=== PATIENT | female | born 1965 | race Caucasian/White ===

== ENCOUNTER 2018-10-03 15:44 | Emergency (ER) | payer BC ==
--- OUTSIDE RECORDS SUMMARY | 2018-10-03 15:49 | XMS REPORT | Continuity of Care Document ---
:1965 External Reference #:[id number] Author Name Brayden Tran MD Address [address] [place] [address] Care Team Providers Name Role Phone Wesly Ramirez M.D. Primary Care Physician Unavailable Payers Date Identification Numbers Payment Provider Subscriber Policy Number: [id number] [facility] [place] PayID: [id number] [address] [address] [place] [address] Problems Active Problems Provider Date Allergic rhinitis Brayden Tran MD Onset: 09/10/2012 Family History Date Family Member(s) Observation Comments Father Asthma Father Emphysema Social History Type Date Description Comments Sex Unknown Occupation Professor IC, Music composition. Tobacco Use Start: Unknown End: Former cigarette smoker, 1989 Unknown smoked a 1/2 a pack a day for 5 years,Quit Tobacco Use Start: Unknown End: Former Cigarette Smoker Unknown Tobacco Use Start: Unknown has never smoked cigars Tobacco Use Start: Unknown has never smoked a pipe Smokeless Tobacco has never used smokeless tobacco ETOH Use Current Alcohol Use Occasionally Recreational Drug Use denies drug use Tobacco Use Start: Unknown End: Patient is a former Unknown smoker Smoking Status Reviewed: 09/09/18 Patient is a former smoker Allergies, Adverse Reactions, Alerts Description No Known Drug Allergies Medications Active Medications SIG Qnty Indications Ordering Date Provider Bactroban mix 1/3 tube in 1 30gm Brayden Mccloud 09/09/2018 2% Cream liter ns irrigate MD Chelsea both nostrils daily with 100 milliliters Mupirocin Calcium mix with saline as 30gm Brayden Mccloud 09/09/2018 prescribed and MD [place] 2% Cream irrigate sinuses daily Pulmicort mix with saline as 60units Brayden Mccloud 02/02/2016 0.5mg/2ML directed and MD [place] Suspension irrigate sinuses twice daily Azelastine HCL instill 2 sprays in 90units Brayden Mccloud 02/02/2015 (Nasal) each nostril two MD [place] 0.1% times a day Solution Fluticasone 2 sprays each 1month Brayden Mccloud 10/14/2013 Propionate nostril daily MD [place] 50mcg/Act Suspension Grossan's 461.2 Bryan Boswell 02/04/2013 Hydropulse Nasal Sanam Glass Biochemistry Professor Sys Bactroban mix in with 30gm Bryan Boswell 01/21/2013 2% Cream Pulmicort nasal Sanam Glass irrigation as instructed. Saline mix with bactroban 3Liters Brayden Mccloud 01/21/2013 0.9% as directed MD [place] Solution Zyrtec Allergy prn Unknown Alkolol twice daily Unknown History Medications Levaquin 1 tablet by mouth 10tabs Brayden Mccloud 06/19/2018 - 500mg daily until finished MD [place] 09/09/2018 Tablets Medrol take as directed 1pchuy Mccloud 06/19/2018 - 4mg MARIANNA Tran MD 09/09/2018 Prednisone 2 by mouth every day 14tabs J32.2 Bryan Boswell 04/02/2017 - 20mg with food Quan, 10/30/2017 Robin Marion Levaquin 1 tablet by mouth 10tabs Brayden Mccloud 02/13/2017 - 500mg daily until finished MD [place] 04/02/2017 Tablets Levaquin 1 tablet by mouth 10tabs Brayden Mccloud 03/15/2016 - 500mg daily until finished MD [place] 02/13/2017 Tablets Medrol take as directed 1pchuy Mccloud 09/22/2015 - 4mg MARIANNA Tran MD 02/13/2017 Medrol (Raymundo) take as directed 1pchuy Mccloud 04/21/2015 - 4mg MD [place] 09/22/2015 Tablets Levaquin 1 tablet by mouth 10tabs Esteban Mercer 04/21/2015 - 500mg daily until finished 02/13/2017 Tablets Medrol (Raymundo) take as directed 1pchuy Mccloud 05/18/2014 - 4mg MD [place] 06/30/2014 Tablets Levaquin 1 tablet by mouth 10tarajendra Mccloud 05/18/2014 - 500mg daily until finished MD [place] 06/30/2014 Tablets Medrol (Raymundo) take as directed 1pchuy Mccloud 02/17/2014 - 4mg MD [place] 06/30/2014 Tablets Levaquin 1 tablet by mouth 10tarajendra Mccloud 02/02/2014 - 500mg daily until finished MD [place] 02/17/2014 Tablets Medrol (Raymundo) take as directed 1pchuy Mccloud 02/02/2014 - 4mg MD [place] 02/17/2014 Tablets Levaquin 1 tablet by mouth 10britney Boswell 01/21/2013 - 500mg daily until finished Quan 02/17/2014 Tablets M.D. Fluticasone Nasal 2 sprays each side 90Days Brayden Mccloud 09/22/2012 - Dresher twice a day MD [place] 02/13/2017 50mcg Azelastine HCL instill 2 sprays 3months Brayden Mccloud 09/22/2012 - into each nostril MD [place] 02/13/2017 137mcg/Dresher twice a day Solution Auvi-Q administer 1units Brayden Mccloud 09/09/2012 - 0.3mg/0.3ML intramuscular to MD [place] 01/21/2013 Device anterolateral thigh Bactroban mix 1/3 tube in 15gm Bryan Boswell 09/09/2012 - 2% Cream liter ns irrigate Quan, 02/17/2014 both nostrils bid M.D. with 20-25cc Saline Flush use with bactroban 3units Bryan Boswell 09/09/2012 - 0.9% irrigations 1000cc Quan, 02/17/2014 Solution M.D. Dymista 1 spray twice a day 90days Bryan Boswell 09/09/2012 - [facility] 137-50mcg/Act insurance card" M.D. Suspension Medrol Dosepak follow the schedule 1Pchuy Boswell 10/07/2011 - 4mg on the pack [facility], 10/07/2011 Tablets M.D. Levaquin 1 po qd 14tabs 473.0 Bryan Boswell 10/07/2011 - [facility]mg [facility], 01/21/2013 Tablets M.D. Medrol Dosepak follow the schedule 1Pchuy Boswell 10/02/2011 - 4mg on the pack [facility], 10/07/2011 Tablets M.D. Bactroban mix 1/3 tube in 3units 477.8 Bryan Boswell 04/26/2011 - 2% Cream liter ns irrigate [facility], 09/09/2012 both nostrils bid M.D. Saline mix with bactroban 3Liters 477.8 Bryan Boswell 04/26/2011 - 0.9% as directed [facility], 09/09/2012 Solution M.D. Albuterol HFA 2 puffs q4h prn 1units 477.8 Bryan Boswell 04/26/2011 - [facility], 10/30/2017 90mcg/Act Aerosol M.D. Levaquin 1 po qd 14days Brayden Mccloud 06/25/2010 - 500mg MD [place] 05/23/2011 Tablets Medrol Dosepak follow the schedule 1Pchuy Boswell 06/25/2010 - 4mg on the pack [facility], 05/23/2011 Tablets M.D. Fexofenadine HCL 1 po qd 30tabs 477.8 Brayden Mccloud 08/14/2009 - MD [place] 05/23/2011 180mg Tablets Levaquin 1 po qd 21days 473.0 Brayden Mccloud 02/10/2009 - 500mg MD [place] 06/25/2010 Tablets Medrol Dosepak follow the schedule 1Pchuy 473.0 Brayden Mccloud 02/10/2009 - 4mg on the pack MD [place] 06/25/2010 Tablets Levaquin 1 tablet by mouth 10tabs 473.2 Brayden Mccloud 10/20/2008 - 500mg daily until finished MD [place] 06/25/2010 Tablets Medrol Dosepak take as directed 1Pchuy 473.2 Brayden Mccloud 10/20/2008 - 4mg MD [place] 06/25/2010 Tablets Percocet 1-2 tabs by mouth 20tabs 473.2 Brayden Mccloud 10/20/2008 - 5-325mg every 4-6 hours as MD [place] 06/25/2010 Tablets needed for pain Levaquin 1 Tablet By Mouth 14tabs Brayden Mccloud 09/06/2008 - 500mg Daily Until Finished MD [place] 06/25/2010 Tablets Nasonex Dresher 2 Sprays In 1units 473.2 Brayden Mccloud 08/31/2008 - 50mcg/Act Both Nostrils Once A MD [place] 01/21/2013 Susp Day Prednisone 4 Tabs PO Every Day 38tabs 473.2 Brayden Mccloud 08/31/2008 - 10mg X5 D, Then 3 Tabs PO MD [place] 06/25/2010 Tablets Every Day X3 D, Then 2 Tabs PO Every Day X3D, Then 1 Tab PO qd X3D, Then Off Augmentin 1 By Mouth Twice A 14tabs 473.2 Brayden Mccloud 08/31/2008 - 875mg Day For 7 Days. MD [place] 06/25/2010 Tablets Augmentin 1 By Mouth Twice A 28tabs 461.2 Brayden Mccloud 08/18/2008 - 875mg Day For 14 Days. MD [place] 06/25/2010 Tablets Augmentin 1 by mouth twice A 28tabs 461.2 Brayden Mccloud 08/18/2008 - 875mg day for 14 days. MD [place] 08/31/2008 Tablets Casandra 1 po qd 90days Brayden Mccloud 04/05/2008 - 180mg MD [place] 05/23/2011 Tablets Xyzal Take 1 Tablet Daily 30tabs Bryan Boswell 04/04/2008 - 5mg Tabs Quan, 04/05/2008 Sanam Vaughntab 5 1-2 tablet every 4-6 32tabs 473.0 Brayden Mccloud 03/21/2008 - Tablets hours for pain MD [place] 08/31/2008 Loratadine Allergy Unknown 11/09/2006 - Relief 08/27/2007 10mg Tablets Dispers Levaquin 1 tablet by mouth 14tabs Brayden Mccloud 07/05/2005 - 500mg daily until finished MD [place] 11/10/2006 Tablets Flonase Unknown 06/18/2005 - 11/10/2006 Labelle Unknown 06/18/2005 - 01/21/2013 Prednisone 4 tabs po every day 30tabs 477.8 Brayden Mccloud 05/29/2005 - 10mg x3 D, then 3 tabs po MD [place] 06/19/2005 Tablets every day x3 D, then 2 tabs po every day x3d, then 1 tab po qd x3d, then off Zyrtec Unknown 05/28/2005 - 11/10/2006 Amoxicillin & Unknown 05/28/2005 - Clavulanate 06/19/2005 Potassium 875mg;125 mg Tablets Nasonex 1 Dresher Intranasal 1units Brayden Mccloud - 50mcg/Act Twice A Day MD [place] 06/25/2010 Suspension Vital Signs Date Vital Result Comment 09/09/2018 2:04pm Weight 130.00 lb Weight 58.968 kg Height 66 inches 5'6" Height in cm's 167.6 cm BMI (Body Mass Index) 21.0 kg/m2 10/30/2017 2:29pm Weight 125.00 lb Weight 56.700 kg Height 66 inches 5'6" Height in cm's 167.6 cm BMI (Body Mass Index) 20.2 kg/m2 04/02/2017 1:43pm BP Systolic 108 mmHg BP Diastolic 74 mmHg Heart Rate 64 /min Respiratory Rate 17 /min Weight 125.00 lb Weight 56.700 kg Height 66 inches 5'6" Height in cm's 167.6 cm BMI (Body Mass Index) 20.2 kg/m2 06/13/2016 2:02pm BP Systolic 122 mmHg BP Diastolic 65 mmHg Heart Rate 61 /min Weight 127.00 lb Weight 57.607 kg Height 66 inches 5'6" Height in cm's 167.6 cm BMI (Body Mass Index) 20.5 kg/m2 06/30/2014 11:23am BP Systolic 131 mmHg BP Diastolic 78 mmHg Heart Rate 72 /min Respiratory Rate 16 /min Weight 127.00 lb Weight 57.607 kg Height 66 inches 5'6" Height in cm's 167.6 cm BMI (Body Mass Index) 20.5 kg/m2 05/18/2014 3:26pm BP Systolic 114 mmHg BP Diastolic 69 mmHg Heart Rate 68 /min Respiratory Rate 17 /min Body Temperature 99.2 F Weight 127.00 lb Weight 57.607 kg Height 66 inches 5'6" Height in cm's 167.6 cm BMI (Body Mass Index) 20.5 kg/m2 02/17/2014 9:49am BP Systolic 188 mmHg BP Diastolic 76 mmHg Heart Rate 62 /min Respiratory Rate 17 /min Weight 127.00 lb Weight 57.607 kg Height 66 inches 5'6" Height in cm's 167.6 cm BMI (Body Mass Index) 20.5 kg/m2 02/04/2013 3:49pm BP Systolic 114 mmHg BP Diastolic 75 mmHg Heart Rate 65 /min Respiratory Rate 17 /min Weight 127.00 lb Weight 57.607 kg 01/21/2013 3:40pm BP Systolic 103 mmHg BP Diastolic 78 mmHg Heart Rate 88 /min Respiratory Rate 17 /min Weight 127.00 lb Weight 57.607 kg 09/09/2012 2:29pm BP Systolic 139 mmHg BP Diastolic 77 mmHg Heart Rate 83 /min Respiratory Rate 18 /min Weight 127.00 lb Weight 57.607 kg 09/22/2008 11:56am Heart Rate 70 /min Respiratory Rate 16 /min Weight 125.00 lb Weight 56.700 kg 08/31/2008 10:40am Heart Rate 72 /min Respiratory Rate 16 /min Weight 125.00 lb Weight 56.700 kg 08/18/2008 11:36am Heart Rate 76 /min Respiratory Rate 16 /min Weight 125.00 lb Weight 56.700 kg 05/05/2008 2:16pm Heart Rate 80 /min Respiratory Rate 16 /min Weight 125.00 lb Weight 56.700 kg 03/21/2008 2:48pm BP Systolic 118 mmHg BP Diastolic 79 mmHg Heart Rate 62 /min Respiratory Rate 16 /min 08/28/2007 4:10pm BP Systolic 99 mmHg BP Diastolic 64 mmHg Heart Rate 70 /min Respiratory Rate 16 /min 11/10/2006 9:59am BP Systolic 86 mmHg BP Diastolic 56 mmHg Heart Rate 48 /min Respiratory Rate 16 /min 05/29/2005 9:48am BP Systolic 110 mmHg BP Diastolic 73 mmHg Heart Rate 66 /min Respiratory Rate 16 /min Results Test Date Facility Test Result H/L Range Note Wound [facility] Wound/Misc (SEE NOTE) 1 Culture/Sensi 3 c/o Department [place] [address] Stain [phone] Laboratory test [facility] Culture And < pending> finding 9 c/o Department [place] [address] [phone] Laboratory test [facility] Culture SERRATIA 2 finding 9 c/o Department of Laboratories Sensitivity [place] <[place] [address] NOTE> [phone] CS-1 [facility] Ampicillin >=32 R 9 c/[place] [address] [phone] Amikacin <=2 S Ciprofloxacin <=0.25 S Ceftriaxone <=1 S Cefazolin >=64 R Gentamicin <=1 S Imipenem <=1 S Levofloxacin <=0.12 S Trimeth-Sulfa <=20 S Ceftazidime <=1 S Tigecycline 1 S Piperacillin/Tazobactam <=4 S HCG () 11/01/2008 [facility] Specific 1.005 Low 1.010-1.030 Urine Stat c/o Department [place] [address] [phone] Urine NEGATIVE Negative 3 Surgical 11/01/2008 [facility] Surgical -- 4 Pathology c/o Department of Laboratories Pathology <SEE NOTE> [place] [address] [phone] CBC With 10/27/2008 [facility] White Blood 4.4 CUMM Low 4.8 Electronic c/o Department of Laboratories Count -10 [place] [address] .8 [phone] Red Cell Count 3.78 CUMM Low 4.2-5.4 Hemoglobin 12.0 g/dL 12.0-16.0 Hematocrit 36 % 35-47 Mean Corpuscular Volume 96 um3 79-97 Mean Corpuscular Hemoglob 32 pg High 27-31 Mean Corpuscular HGB Cone 33 g/dL 32-36 Redcell Distribution WDTH 12 % 10.5-15 Platelet Count 213 CUMM 150-450 Mean Platelet Volume 8.5 um3 7.4-10.4 Gran % 57.3 % 38-83 Lymph % 35.2 % 25-47 Mononuclear % 6.5 % 1-9 Eosinophil % 0.4 % 0-6 Basophil % 0.6 % 0-2 Abs Lymphs 1.6 1.0-4.8 Abs Mononuclear 0.3 0-0.8 Absolute Neutrophil Count 2.5 1.5-7.7 Abs Eosinophils 0 0-0.6 Abs Basophils 0 0-0.2 Urine 10/27/2008 [facility] Specific 1.003 Low 1.010-1.030 Qual c/o Department of [place] [address] [phone] Urine NEGATIVE Negative 5 Laboratory test 09/19/2008 [facility] Rast Rabbit ( SEE NOTE) 6 finding c/o Department of [place] [address] [phone] Ast GN20 08/31/2008 [facility] Ampicillin >=32 R 7 c/o Department [place] [address] [phone] Amikacin <=2 S Ciprofloxacin <=0.25 S Cefazolin >=64 R Gentamicin <=1 S Imipenem <=1 S Levofloxacin <=0.25 S Meropenem <=0.25 S Trimeth-Sulfa <=20 S Ceftazidime <=1 S Tigecycline 1 S Piperacillin/Tazobactam <=4 S Laboratory test 08/31/2008 [facility] Culture SERRATIA 8 finding c/o Department of Laboratories Sensitivity MARCESC <[place] [address] NOTE> [phone] HCG () 03/29/2008 [facility] Specific [place] 1.006 Low 1.010 Urine Stat c/o Department of Laboratories -1.03 [place] [address] 0 [phone] Urine NEGATIVE Negative 9 Surgical 03/29/2008 [facility] Surgical -- 10 Pathology c/o Department of Laboratories Pathology <SEE NOTE> [place] [address] [phone] Urine 03/25/2008 [facility] Specific 1.004 Low 1.0 11 c/o Department of Laboratories [place] 10- [place] [address] 1.0 [phone] Urine NEGATIVE Negative 12 CBC With 03/25/2008 [facility] White Blood 5.9 CUMM 4.8-10.8 Electronic Diff c/o Department [place] [address] [phone] Red Cell Count 4.03 CUMM Low 4.2-5.4 Hemoglobin 13.1 g/dL 12.0-16.0 Hematocrit 39 % 35-47 Mean Corpuscular Volume 97 um3 79-97 Mean Corpuscular Hemoglob 32 pg High 27-31 Mean Corpuscular HGB Cone 33 g/dL 32-36 Redcell Distribution WDTH 11 % 10.5-15 Platelet Count 230 CUMM 150-450 Mean Platelet Volume 7.8 um3 7.4-10.4 Gran % 62.4 % 38-83 Lymph % 27.0 % 20-45 Mononuclear % 7.4 % 1-9 Eosinophil % 3.1 % 0-6 Basophil % 0.1 % 0-2 Abs Lymphs 1.6 1.0-4.8 Abs Mononuclear 0.4 0-0.8 Absolute Neutrophil Count 3.7 1.5-7.7 Abs Eosinophils 0.2 0-0.6 Abs Basophils 0 0-0.2 1 RUN DATE: 02/08/13 [facility] LAB LIVE PAGE 1 RUN TIME: [address] [place] [address] Specimen Inquiry Name: SADIE WALL : [address]: Deb Hull NP Acct: [id number] Unit: [id number] AGE: 47 Location: [facility] Re02/04/13 SEX: F Status: REG REF SPEC: [id number] KRISTIAN: 02/04/[address]: Deb Hull NP REQ: [id number] RECD: 02/05/13 STATUS: COMP _ SOURCE: MISC SOURC SPDESC:WOUND ORDERED: Culture Stain QUERIES: Medent Number [id number] Specimen Description LEFT MIDDLE MEATUS Procedure Result Verified Site Wound/Misc Gram Stain Final 02/05/13- 1420 ML 2+ Nucleated Cells 1+ Gram Positive Cocci Wound/Misc Culture Final 02/08/13- 0825 ML No Growth Day 3 END OF REPORT * ML=Testing performed at Main Lab DEPARTMENT OF PATHOLOGY, [address] [place] [address] Tavo Puckett M.D. Director [facility] Permit #[id number] 2 SERRATIA MARCESCENS F^FEW^QTY 3 If is still suspected, please repeat test after 48 to 72 hours. . 4 --- RUN DATE: 11/02/08 [facility] NMI LIVE PAGE 1 RUN TIME: 1455 Specimen Inquiry RUN USER: INTERFACE -- Name: SADIE BRIZUELA Lee Torres#: [id number] Status: [facility] Re11/01/08 Age/Sex: 43/F Unit#: [id number] Location: [facility] : [birth year] -- Specimen: [id number] SOUT Spec Date: 11/01/[address]: Brayden Tran MD Spec Type: SURGICAL P Received: 11/01/08-0603 Copies to: SPECIMEN 1) SEPTAL CARTILAGE AND BONE 2) RIGHT SINUS CONTENTS HISTORY PRE-OP DIAGNOSIS: Acute ethmoidal sinusitis GROSS DESCRIPTION 1) Specimen received in formalin labelled Sadie Brizuela, Septal Cartilage and Bone and consists of multiple, mckeon, pink and merritt-white bone and cartilage fragments measuring 3.6 x 1.8 x 0.4 cm. in aggregate. Per established hospital medical staff protocol no tissue is submitted. Gross only. 2) Specimen received in formalin labelled Sadie Brizuela, Right Sinus Contents and consists of multiple, mckeon to pink, soft tissue and bone fragments measuring 1.2 x 0.3 x 0.2 cm. in aggregate. Submitted entirely, one cassette. DIAGNOSIS 1) Nasal septal cartilage and bone, septoplasty: Unremarkable bone and cartilaginous fragments. 2) Right nasal sinus contents: Respiratory mucosa with chronic inflammation and post inflammatory hyperpigmentation and focal xanthogranulomatous inflammation. Signed Electronically by: TAVO PUCKETT MD 11/02/08 1452 -- -- DEPARTMENT OF PATHOLOGY, [address] [place] [address] [facility] Permit #[id number] Tavo Puckett M.D. Director Kedar Delgado M.D. Clinical Documentation Nurse Dir cecil -- 5 If is still suspected, please repeat test after 48 to 72 hours. . 6 TEST RESULT RETURNED FROM REFERENCE LABORATORY AND HARDCOPY SENT TO PHYSICIAN(S) OFFICE. 7 LEFT ETHMOID SINUS 8 SERRATIA MARCESCENS 9 If is still suspected, please repeat test after 48 to 72 hours. . 10 ---- RUN DATE: 03/31/08 [facility] NMI LIVE PAGE 1 RUN TIME: 1331 Specimen Inquiry RUN USER: INTERFACE -- Name: SADIE BRIZUELA Accmanasa#: [id number] Status: [facility] Re03/29/08 Age/Sex: 42/F Unit#: [id number] [facility] : [birth year] -- Specimen: [id number] SOUT Spec Date: 03/29/[address]: Brayden Tran MD Spec Type: SURGICAL P Received: 03/30/08-1008 Copies to: SPECIMEN 1) LEFT SINUS CONTENTS 2) RIGHT SINUS CONTENTS HISTORY PRE-OP DIAGNOSIS: Chronic sinusitis GROSS DESCRIPTION 1) The specimen is received in formalin labelled Sadie Brizuela, Left Sinus Contents, and consists of a mckeon, hemorrhagic, soft tissue fragment and shavings measuring 1.6 x 0.6 x 0.3 cm. in aggregate. Grinder Setup Operator section, one cassette. 2) The specimen is received in formalin labelled Sadie Brizuela, Right Sinus Contents, and consists of a mckeon-merritt, focally hemorrhagic, membranous, soft tissue fragment and shavings measuring 2.1 x 0.7 x 0.3 cm. in aggregate. Grinder Setup Operator section, one cassette. DIAGNOSIS 1) Left sinus contents: Chronically inflamed respiratory mucosa. 2) Right sinus contents: Chronically inflamed respiratory mucosa and bone fragments. Signed Electronically by: TAVO PUCKETT MD 03/31/08 1331 -- -- DEPARTMENT OF PATHOLOGY, [address] [place] [address] [facility] Permit #[id number] Tavo Puckett M.D. Director Kedar Delgado M.D. Clinical Documentation Nurse Dir cecil -- 11 AA 03/29/08 12 If is still suspected, please repeat test after 48 to 72 hours. . Procedures Date Code Description Status 02/04/2013 72998 Nasal Endoscopy, Diagnostic Completed 09/09/2012 57452 Nasal Endoscopy, Diagnostic Completed 05/16/2011 18303 Prick Test Completed 02/10/2009 02344 Nasal Endoscopy, Diagnostic Completed 11/01/2008 01191 Nasal Endoscopy With Ethmoidectomy, Partial Completed 11/01/2008 68866 Septoplasty Completed 08/31/2008 71911 Nasal Endoscopy, Diagnostic Completed 07/07/2008 10215 Prick Test Completed 05/05/2008 64556 Nasal Endoscopy, Diagnostic Completed 04/05/2008 11138 Nasal Endoscopy W/ Debridement Completed 03/31/2008 26067 Nasal Endoscopy, Diagnostic Completed 03/29/2008 46331 Nasal Endoscopy W/Maxllary Antrostomy W/Excision Of Poylp Completed 03/29/2008 48024 Nasal Endoscopy/Ethmoidectomy, Total Completed 12/02/2006 00012 Prick Test Completed 12/02/2006 26241 Prick Test Completed 05/29/2005 92241 Nasal Endoscopy, Diagnostic Completed Encounters Type Date Location Provider Dx Diagnosis Office Visit 09/09/2018 [place],After Brayden Howard30.89 Other allergic 1:45p 04/14/07 MD [place] rhinitis J32.9 Chronic sinusitis, unspecified Office Visit 10/30/2017 2:15p [place],After 04/14/07 Brayden Howard30.89 Other allergic MD [place] rhinitis Office Visit 04/02/2017 1:45p [place],After 04/14/07 Bryan Howard32.2 Chronic Quan ethmoidal M.D. sinusitis Office Visit 02/13/2017 2:45p [place],After 04/14/07 Brayden Howard32.2 Domenica Tran MD ethmoidal sinusitis J30.89 Other allergic rhinitis Office Visit 06/13/2016 1:30p [place],After 04/14/07 Brayden Mccloud J30.1 Allergic MD [place] rhinitis due to pollen Office Visit 03/15/2016 10:00a [place],After 04/14/07 Brayden Mccloud J32.2 Chronic MD [place] ethmoidal sinusitis Office Visit 02/02/2016 10:30a [place],After 04/14/07 Brayden Mccloud J32.2 Chronic MD [place] ethmoidal sinusitis J30.1 Allergic rhinitis due to pollen Office Visit 06/30/2014 11:00a [place],After 04/14/07 Brayden Mccloud 477.8 RhinitisChelsea MD Perennial, Allergy Office Visit 05/18/2014 3:15p [place],After 04/14/07 Brayden Mccloud 461.9 SinusitisChelsea MD Acute/Unspecifie d Office Visit 02/17/2014 9:30a [place],After 04/14/07 Brayden Mccloud 473.2 SinusitisChelsea MD Chronic Ethmoidal 477.8 Rhinitis, Perennial, Allergy Office Visit 02/04/2013 3:15p [place],After 04/14/07 [place] 461.2 Sinusitis, Acute Deb WELLNESS SPECIALIST Ethmoidal Office Visit 01/21/2013 3:30p [place],After 04/14/07 Brayden Mccloud 461.2 Sinusitis, Acute MD [place] Ethmoidal Office Visit 09/09/2012 2:15p [place],After 04/14/07 Brayden Mccloud 477.8 RhinitisChelsea MD Perennial, Allergy 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 478.1-4 Obstruction Of Nasal Airway Office Visit 10/07/2011 9:45a [place],After 04/14/07 [place], 473.0 Sinusitis, Deb WELLNESS SPECIALIST Chronic Maxillary 477.8 Rhinitis, [place]rennial, Allergy Office Visit 05/23/2011 2:30p [place],After 04/14/07 [place], 477.8 Rhinitis , Deb WELLNESS SPECIALIST Perennial, Allergy 477.8 Rhinitis, Perennial, Allergy 477.0 Rhinitis, Seasonal -Allergic Due To Pollen 477.0 Rhinitis, Seasonal -Allergic Due To Pollen Office Visit 04/26/2011 9:00a [place],After 04/14/07 [place], 477.8 Rhinitis , Deb WELLNESS SPECIALIST Perennial, Allergy 477.0 Rhinitis, Seasonal -Allergic Due To Pollen 473.0 Sinusitis, Chronic Maxillary Office Visit 08/14/2009 3:30p [place],After 04/14/07 [place], 477.8 Rhinitis , Deb WELLNESS SPECIALIST Perennial, Allergy 477.0 Rhinitis, Seasonal -Allergic Due To Pollen Office Visit 02/10/2009 2:00p [place],After 04/14/07 [place], 473.0 Sinusitis, Deb WELLNESS SPECIALIST Chronic Maxillary 473.2 Sinusitis, Chronic Ethmoidal 472.0 Rhinitis, Chronic Office Visit 09/22/2008 11:30a [place],After 04/14/07 Brayden Mccloud 470 Deviated Nasal MD [place] Septum 461.2 Sinusitis, Acute Ethmoidal Office Visit 08/18/2008 11:00a [place],After 04/14/07 Brayden Mccloud 461.2 Sinusitis, Acute MD [place] Ethmoidal Office Visit 07/22/2008 10:30a [place],After 04/14/07 [place], 477.8 Rhinitis , Deb WELLNESS SPECIALIST Perennial, Allergy Office Visit 03/21/2008 2:15p [place],After 04/14/07 [place], 473.0 Sinusitis, Deb WELLNESS SPECIALIST Chronic Maxillary 473.2 Sinusitis, Chronic Ethmoidal 473.1 Sinusitis, Chronic Frontal Office Visit 08/28/2007 4:00p [place],After 04/14/07 Brayden Mccloud 477.8 Rhinitis, MD [place] Perennial, Allergy 473.2 Sinusitis, Chronic Ethmoidal 473.0 Sinusitis, Chronic Maxillary 473.1 Sinusitis, Chronic Frontal Office Visit 04/30/2007 11:30a [place],After 04/14/07 [place], 473.0 Sinusitis, Deb WELLNESS SPECIALIST Chronic Maxillary 477.8 Rhinitis, Perennial, Allergy 470 Deviated Nasal Septum Office Visit 11/10/2006 10:00a [place],After 04/14/07 Brayden Mccloud 477.8 Rhinitis, MD [place] Perennial, Allergy 473.0 Sinusitis, Chronic Maxillary 381.81 Dysfunction Of Eustachian Tube Office Visit 06/19/2005 3:30p [place],After 04/14/07 Brayden Gonzalez.8 RhinitisChelsea MD Perennial, Allergy 381.81 Dysfunction Of Eustachian Tube Office Visit 05/29/2005 9:45a [place],After 04/14/07 Brayden Gonzalez.8 RhinitisChelsea MD Perennial, Allergy 473.0 Sinusitis, Chronic Maxillary
[2018-10-03 16:00] VITALS: BP 117/70
--- NOTE | 2018-10-03 16:07 | UC ---
Lower Extremity/Ankle HPI - HPI Summary HPI Summary: R ankle and edmondson pain started 1 week ago after long bike ride. pt is active, has chronic weakness R side (sees neuro) she does daily exercises but pain is much worse over past few days - History of Current Complaint Chief Complaint: UCLowerExtremity Stated Complaint: ANKLE INJURY Time Seen by Provider: 10/03/18 15:54 Hx Obtained From: Patient ?: No Onset/Duration: Gradual Onset Severity Initially: Mild Severity Currently: Moderate Pain Intensity: 5 Aggravating Factor(s): Standing, Ambulation Alleviating Factor(s): Rest Able to Bear Weight: Yes - Allergies/Home Medications Allergies/Adverse Reactions: Allergies Allergy/AdvReac Type Severity Reaction Status Date / Time ENVIRONMENTAL Allergy SEASONAL Uncoded 10/03/18 15:51 Home Medications: Home Medications Budesonide [Pulmicort] 1 mg IN DAILY 10/03/18 [History Confirmed 10/03/18] PMH/Surg Hx/FS Hx/Imm Hx Previously Healthy: Yes 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 - Surgical History Surgical History: None Surgery Procedure, Year, and Place: LEFT MIDDLE & RING FINGER-2 D &C-BREAST REDUCTION-FIRST RIGHT RIB REMOVED-SINUS SURGERY - Family History Known Family History: Positive: Non-Contributory - Social History Occupation: Employed Full-time Lives: With Family Alcohol Use: Daily Substance Use Type: None Smoking Status (MU): Former Smoker Have You Smoked in the Last Year: No When Did the Patient Quit Smoking/Using Tobacco: 1978 Review of Systems All Other Systems Reviewed And Are Negative: Yes Constitutional: Positive: Negative Respiratory: Positive: Negative Cardiovascular: Positive: Negative Musculoskeletal: Positive: Other: - pain R ankle, edmondson Is Patient Immunocompromised?: No Physical Exam Triage Information Reviewed: Yes Appearance: Well-Appearing, No Pain Distress, Well-Nourished Vital Signs: Initial Vital Signs Temp 98.6 F 10/03/18 15:53 Pulse 80 10/03/18 15:53 Resp 18 10/03/18 15:53 BP 117/70 10/03/18 15:53 Pulse Ox 97 10/03/18 15:53 Vital Signs Reviewed: Yes Respiratory Exam: Normal Respiratory: Positive: Lungs clear Cardiovascular Exam: Normal Cardiovascular: Positive: RRR Musculoskeletal: Positive: Other: - pain anterior ankle and distal edmondson, no swelling or ecchymosis, no redness. is able to amb with pain Neurological Exam: Normal Skin Exam: Normal Diagnostics - Radiology No standard instances Radiology Interpretation Completed By: Radiologist - Normal articular alignment and preserved joint spaces at the lower leg and ankle. No stress reaction, fracture, or osteochondral lesion evident. Lower Extremity Course/Dx - Differential Dx/Diagnosis Differential Diagnosis/HQI/PQRI: Contusion, Fracture (Closed), Strain, Tendonitis Provider Diagnosis: Muscle strain Discharge - Sign-Out/Discharge Documenting (check all that apply): Patient Departure All imaging exams completed and their final reports reviewed: Yes - Discharge Plan Condition: Good Disposition: HOME Patient Education Materials: Leg Pain (ED) Referrals: Wesly Ramirez MD [Primary Care Provider] - 2 Days (make appointment for follow-up R leg pain this week) Additional Instructions: elevate leg and rest report to ER if you experience increased pain, swelling or new symptoms in leg otherwise see your primary care provider next week - Billing Disposition and Condition Condition: GOOD Disposition: Home
== END 2018-10-03 17:00 | disposition home or self-care (01) ==
LOC: UCEAST 15:44
DX: S93.401A Sprain of unspecified ligament of right ankle, initial encounter (principal); X50.3XXA Overexertion from repetitive movements, initial encounter; Y93.55 Activity, bike riding; Y92.9 Unspecified place or not applicable; Z87.891 Personal history of nicotine dependence
CPT/HCPCS: 99211; G0463